=== PATIENT | male | born 1995 | race Caucasian/White ===

== ENCOUNTER 2017-04-25 09:45 | Emergency (ER) | payer SELFPAY ==
[2017-04-25 10:01] VITALS: BP 124/63
--- NOTE | 2017-04-25 10:05 | ERNOTE ---
Back Pain ER HPI Date of Service: 04/25/17 Presenting Symptoms: injury/pain to back Time Seen by Provider: 04/25/17 10:01 Source: patient, RN notes reviewed Exam Limitations: no limitations Immunizations: IMMUNIZATION HX Immunizations Up to Date Yes History of Influenza Vaccine No Hx Pneumococcal Vaccination No Allergies/Adverse Reactions: Allergies No Known Allergies Allergy (Verified 04/25/17 09:59) Home Medications: HOME MEDICATIONS Atenolol [Tenormin] 1 mg PO DAILY 09/02/12 [Last Taken Unknown] Losartan Potassium [Cozaar] 50 mg PO BID 09/02/12 [Last Taken Unknown] Cyclobenzaprine HCl [Flexeril] 10 mg PO TID PRN #20 tab 04/25/17 [Last Taken Unknown] Narrative: Loli is a 22-year-old male who presents to the emergency Department by private vehicle for injury to his right lower posterior ribs that occurred last night while he was playing basketball. He reports that he went up for a layup and was hit by another player. It was not initially very painful, but he reports that after he got home and rested the pain became much worse. He feels as though he cannot take a deep breath. He has taken Tylenol for pain without improvement. He has Marfan syndrome. Date (Duration): 04/24/17 Time (Timing): 21:30 Timing: Reports: constant Quality/Severity: Reports: severe Location of pain: Reports: mid back - Right lower ribs posteriorly, other - radiates around lower ribs anteriorly Activities at Onset: Reports: activity Recent Injury?: Reports: yes Prior Treament: Denies: recently seen, similar symptoms before Review of Systems - Review of Systems Constitutional: Present: other - difficulty sleeping. Absent: recent illness, fever, chills EYE: Present: no symptoms reported ENT: Present: no symptoms reported Respiratory: Present: shortness of breath. Absent: cough, wheezing Cardiology: Absent: palpitations, syncope Gastrointestinal/Abdominal: Absent: nausea, vomiting, abdominal pain Genitourinary: Absent: dysuria, hematuria Musculoskeletal: Present: back pain, muscle pain. Absent: neck pain, joint pain , joint swelling Skin: Absent: lesions, lumps, change in color Neurological: Absent: dizziness/light-headedness, weakness, numbness, tingling Endocrine: Present: no symptoms reported Hematologic/Lymphatic: Absent: easy bruising, easy bleeding Psych: Present: no symptoms reported - Patient's Past Medical History Patient History - Medical: No pertinent hx Patient History - Cardiac/Respiratory: Aneurysm, Hypertension, Other - Marfan syndrome Patient History - Cancer: No Hx of Cancer Patient History - Surgical Procedures: Other - Valve sparing aortic root replacement Patient History - Other: None - Social History Living Situations: alone Abuse History: No History of abuse Psych History: No pertinent hx Smoking Status: Never smoker Have you smoked in the past 12 months: No Alcohol Use: none Drug Use: none - Immunizations Immunizations Up to Date: Yes Hx Pneumococcal Vaccination: No History of Influenza Vaccine: No Physical Exam - Physical Exam General Appearance: Present: wd/wn, alert, mild distress Head Exam: Present: normal inspection, no evidence of injury Neck: Present: normal inspection, nontender, supple, full range of motion Respiratory: Present: no respiratory distress, normal breath sounds, no accessory muscle use, lungs clear, chest tenderness - right lower posterior ribs Cardiovascular/Chest: Present: regular rate, rhythm, no murmur, normal peripheral pulses Back Exam: Present: no CVA tenderness, no vertebral tenderness, decreased range of motion Extremity Exam: Present: normal inspection, normal range of motion, no edema Neurological Exam: Present: alert, oriented, normal mood/affect, no motor/ sensory deficits Skin Exam: Present: normal color, warm/dry ED Progress - Vital Signs Patient's Vital Signs:: I have reviewed the patient's vital signs. Vital Signs: Vital Signs 04/25/17 09:56 Temperature 36.4 C L Pulse Rate 66 Respiratory 14 Rate Blood Pressure 124/63 O2 Sat by Pulse 99 Oximetry - X-Ray X-Ray #1 X-Ray: ribs - Right Interpretation: Reviewed by me X-ray Comments: No acute fracture identified X-Ray #2 X-Ray: chest Interpretation: Reviewed by me X-ray Comments: No acute cardiopulmonary pathology identified - Progress/Reassessment Chief Complaint: Back Pain Progress:: Unchanged Departure Clinical Impression: Rib pain on right side - Departure Disposition: Home Follow Up Needed Condition: Stable Instructions: Rib Contusion Additional Instructions: Tylenol for pain Muscle relaxant every 8 hours as needed - will likely cause drowsiness Ice to sore areas NO SPORTS Prescriptions: Cyclobenzaprine HCl [Flexeril] 10 mg PO TID PRN #20 tab PRN Reason: MUSCLE SPASMS
[2017-04-25] MEDS ORDERED: IBUPROFEN 600 MG TABLET PO ONE (10:11)
--- OUTSIDE RECORDS SUMMARY | 2017-04-25 10:13 | XMS REPORT | CCD ---
:1995 Author Name KEVINBRISA FORD Stevo Address [address] [facility] Unavailable [place], [place] [id number] Care Team Providers Name Role Phone BALDO PENN Attending Physician Unavailable BALDO PENN Er Physician 1 Unavailable NALLELY Greene Registered Nurse Unavailable Vital Signs Vital Sign Value Unit Date/Time Recent/Initial? Weight Measured 240 lbs 05/11/2015 09:23 Initial VS Height 78 in 05/11/2015 09:23 Initial VS BMI (Body Mass Index) 27.73 kg/m^2 05/11/2015 09:23 Initial VS BSA (Body Surface Area) 2.45 m^2 05/11/2015 09:23 Initial VS BP Systolic 140 mmHg 05/11/2015 09:23 Initial VS BP Diastolic 82 mmHg 05/11/2015 09:23 Initial VS Allergies Allergy Code Allergy Type Reaction Status No Known Drug Allergies 0 No known drug allergies Active Procedures Unknown or Not Available. History of Immunizations Immunization Code Date influenza, live, intranasal 111 10/20/2008 meningococcal MCV4P 114 06/02/2007 meningococcal MCV4P 114 08/11/2011 Tdap 115 06/02/2007 Influenza, seasonal, injectable, preservative free 140 08/11/2011 no vaccine administered 998 1994 Problems Unknown or Not Available. Results STREP SCREEN - Collect Date/Time: 05/11/2015 09:46 Test Name Code Test Result Test Units Test Ref Range STREP SCREEN NEGATIVE N/A NORMAL:NEGATIVE Active Medications Unknown or Not Available. Medications Administered During Visit Unknown or Not Available. Encounters Encounter Diagnosis Diagnosis Code Start Date ACUTE PHARYNGITIS 462 05/11/2015 Social History Smoking Status Code Start Date End Date Never smoker [id number] Patient Decision Aids Unknown or Not Available. Discharge Instructions You were admitted to [facility] on 05/11/2015 with a principal diagnosis of ACUTE PHARYNGITIS. You were discharged from [facility] on 05/11/2015. Should you have any questions prior to discharge, please contact a member of your healthcare team. If you have left the hospital and have any questions, please contact your primary care physician. Chief Complaint and Reason For Visit Chief Complaint Date of Onset SICK Function Status Unknown or Not Available. Plan of Care Unknown or Not Available. Referral/Transition of Care Unknown or Not Available.
--- OUTSIDE RECORDS SUMMARY | 2017-04-25 10:13 | XMS REPORT | CCD ---
:1995 Author Name BRISA GOLD Address [address] [facility] Unavailable [place], [place] [id number] Care Team Providers Name Role Phone MARCO A KENNEY Attending Physician Unavailable MARCO A KENNEY Er Physician 1 Unavailable TAMIKA Keita Registered Nurse Unavailable Vital Signs Vital Sign Value Unit Date/Time Recent/Initial? Weight Measured 243 lbs 06/12/2015 11:43 Initial VS Height 78 in 06/12/2015 11:43 Initial VS BMI (Body Mass Index) 28.08 kg/m^2 06/12/2015 11:43 Initial VS BSA (Body Surface Area) 2.46 m^2 06/12/2015 11:43 Initial VS BP Systolic 116 mmHg 06/12/2015 11:43 Initial VS BP Diastolic 80 mmHg 06/12/2015 11:43 Initial VS Allergies Allergy Code Allergy Type Reaction Status MELOXICAM 92687 Drug allergy RASH Active TRAMADOL 84716 Drug allergy Active Procedures Unknown or Not Available. History of Immunizations Immunization Code Date influenza, live, intranasal 111 10/20/2008 meningococcal MCV4P 114 06/02/2007 meningococcal MCV4P 114 08/11/2011 Tdap 115 06/02/2007 Influenza, seasonal, injectable, preservative free 140 08/11/2011 no vaccine administered 998 1994 Problems Unknown or Not Available. Results Unknown or Not Available. Active Medications Unknown or Not Available. Medications Administered During Visit Unknown or Not Available. Encounters Encounter Diagnosis Diagnosis Code Start Date [place] [facility] 8471 06/12/2015 Social History Smoking Status Code Start Date End Date Never smoker [id number] Patient Decision Aids Unknown or Not Available. Discharge Instructions You were admitted to [facility] on 06/12/2015 with a principal diagnosis of [place] [facility] [place]. You were discharged from [facility] on 06/12/2015. Should you have any questions prior to discharge, please contact a member of your healthcare team. If you have left the hospital and have any questions, please contact your primary care physician. Chief Complaint and Reason For Visit Chief Complaint Date of Onset BACK PAIN Function Status Unknown or Not Available. Plan of Care Unknown or Not Available. Referral/Transition of Care Unknown or Not Available.
[2017-04-25] MEDS ORDERED: IBUPROFEN 600 MG TABLET ONE (10:15)
== END 2017-04-25 10:54 | disposition home or self-care (01) ==
LOC: ER 09:45
DX: R07.81 Pleurodynia (principal); I10 Essential (primary) hypertension; X58.XXXA Exposure to other specified factors, initial encounter; Y93.67 Activity, basketball; Y92.39 Other specified sports and athletic area as the place of occurrence of the external cause; Y99.8 Other external cause status